=== PATIENT | female | born 2005 | race African-American/Black ===

== ENCOUNTER 2025-04-12 06:45 | Day surgery (SDC) | payer OTHER, SELFPAY ==
--- NOTE | 2025-04-12 | PATH_ITS ---
[facility] Accession Number: [id number] No. of containers..03 Tissue . 01 Material submitted: . PART A: duodenum - DUODENUM PART B: duodenum bulb - DUODENUM, BULB PART C: gastrointestinal site - ANTRUM . 01 Diagnosis: A. DUODENUM, BIOPSY: Small bowel mucosa with no diagnostic abnormality. Negative for active inflammation, features of sprue, dysplasia, or malignancy. . B. DUODENAL BULB, BIOPSY: Duodenal mucosa with no diagnostic abnormality. Negative for active inflammation, features of sprue, dysplasia, or malignancy. . C. GASTRIC ANTRUM, BIOPSY: Gastric antral mucosa with mild chronic inflammation. Negative for Helicobacter organisms by immunohistochemistry. Negative for intestinal metaplasia. Negative for dysplasia or malignancy. [facility] 04/19/2025 1302 Local . 01 Electronically signed: . Elgin Alas MD, PhD, Pathologist NPI- [id number] . 01 Gross description: . Part A: DUODENUM: Received in formalin is 1 fragment(s) of garcía, soft tissue measuring 0.3 x 0.3 x 0.2 cm submitted entirely in 1 cassette(s) Part B: DUODENUM, BULB: Received in formalin are 2 fragment(s) of garcía, soft tissue measuring 0.3 x 0.3 x 0.2 cm to 0.4 x 0.2 x 0.2 cm submitted entirely in 1 cassette(s) Part C: ANTRUM: Received in formalin are 3 fragment(s) of garcía, soft tissue measuring 0.2 x 0.2 x 0.2 cm to 0.5 x 0.4 x 0.2 cm submitted entirely in 1 cassette(s) /[facility] 04/13/2025 1949 Local . 01 Microscopic: . C. An immunohistochemical stain was performed to evaluate for Helicobacter organisms and is negative. The control stain showed appropriate reactivity. . * This test was developed and the performance characteristics were validated by [employer]. It has not been cleared or approved by the [place]. Food and Drug Administration. . 01 Pathologist provided ICD-10: K29.70 . 01 CPT . 917158, 092965, 351614, J88240 Specimen Comment: A courtesy copy of this report has been sent to [phone] Performed at: [address] [address], [place], [place] [id number] MD Nadeem Ford MD Phone: [phone]
[2025-04-12 07:10] VITALS: BP 117/69; PULSE 106; RESP 16; TEMP 36.6; O2SAT 100
[2025-04-12] MEDS: LACTATED RINGERS 1,000 ML 42 ML IV (07:17)
--- NOTE | 2025-04-12 07:33 | PM.PREOP ---
Pre-operative Note COVID-19 COVID-19 status: Not tested Interval Note History & Physical reviewed/Exam performed by Physician: Yes Changes to H&P: No ASA Class (for procedural sedation): II
[2025-04-12 08:19] VITALS: BP 96/66; PULSE 83; RESP 16; TEMP 36.2; O2SAT 100
--- NOTE | 2025-04-12 08:21 | P.OP.EGD&C_ITS ---
Operative Date/Time/Diagnoses Date of procedure: 04/12/25 Time of procedure: 08:21 Pre-op diagnosis: Rectal bleeding Post-op diagnosis: same Procedure & Clinicians Study performed: EGD and colonoscopy Same procedure(s) as scheduled: Yes Surgeon: Dieudonne Jacobo Procedure Notes Procedure in detail: Surgeon: Dieudonne Jacobo MD Anesthesia: Leonarda Pepper IT OPERATIONS SPECIALIST Procedure in detail: A timeout was performed. A bite blocked was placed and monitors were attached to the patient. The patient was positioned in the left lateral decubitus position. Sedation was administered. Once the patient was sedated the endoscope was inserted through the bite block and passed through the esophagus and stomach and into the duodenum. The duodenal mucosa appeared normal however random biopsies were taken from the duodenal mucosa with cold forceps due to the history of Helicobacter pylori. The scope was withdrawn into the duodenal bulb. Again no abnormalities were seen but random biopsies were taken of the bulb with cold forceps. We then withdrew the scope into the stomach. There was mild antritis and random biopsies were taken of the antrum with cold forceps. The rest of the stomach appeared normal. The endoscope was retroflexed and no hiatal hernia was seen. The endoscope was straightned and withdrawn into the esophagus. No abnormalities were seen within the esophagus. EGD findings: Mild antritis Next we repositioned the patient for a colonoscopy. A digital rectal exam was performed and ridge was palpable in the posterior midline consistent with a posterior midline fissure. On visual inspection there was a sentinel pile in the posterior midline. The colonoscope was inserted and advanced to the cecum. The appendiceal orifice was identified and photographed. The scope was slowly withdrawn over greater than 6 minutes. No polyps or other abnormalities were seen throughout colon and rectum. The scope was retroflexed in the rectum and no gross abnormality was seen. Upon withdrawal through the anal canal there appeared to be a small posterior midline anal fissure. Colonoscopy findings: Normal colon, posterior midline anal fissure Total procedural EBL: 2 mL Scope withdrawal time: 8 minutes Sedation minutes: 29 minutes Post-procedure Disposition: PACU
[2025-04-12 08:23] VITALS: BP 99/63; PULSE 80; RESP 17; O2SAT 100
[2025-04-12 08:29] VITALS: BP 108/71; PULSE 101; RESP 13; O2SAT 100
[2025-04-12 08:34] VITALS: BP 92/65; PULSE 92; RESP 16; O2SAT 97
[2025-04-12 08:41] VITALS: BP 109/69; PULSE 86; RESP 16; TEMP 36.5; O2SAT 100
== END 2025-04-12 08:54 | disposition home or self-care (01) ==
PROVIDERS: Referring Provider Surgery; Visit Provider Surgery
PROC: 0DJ08ZZ Inspection of Upper Intestinal Tract, Via Natural or Artificial Opening Endoscopic (ICD-10-PCS; CPT 43239; principal; 2025-04-12 07:45)
PROC: 0DJD8ZZ Inspection of Lower Intestinal Tract, Via Natural or Artificial Opening Endoscopic (ICD-10-PCS; CPT 45378; 2025-04-12 07:45)
DX: K62.5 Hemorrhage of anus and rectum (principal); R10.13 Epigastric pain; K59.00 Constipation, unspecified; K29.50 Unspecified chronic gastritis without bleeding; K60.2 Anal fissure, unspecified; K64.8 Other hemorrhoids
CPT/HCPCS: 43239; 45378; J2405; J2704

== ENCOUNTER → 2025-07-18 10:56 | Outpatient (CLI) | payer OTHER, SELFPAY ==
--- NOTE | 2025-07-18 10:57 | DI.US.S_ITS ---
PROCEDURE: US ABDOMEN COMPLETE INDICATIONS: Abdominal pain TECHNIQUE: Real-time scanning was performed of the abdominal and retroperitoneal organs, with image documentation. COMPARISON: None. FINDINGS: Liver: Liver is normal in size and homogeneous in echotexture. Gallbladder: No findings of gallstones or sludge are seen. The gallbladder wall is not thickened, measuring 3 mm or less. No specific pericholecystic fluid is seen. The sonographic Lopez sign is negative. Biliary ducts: Intrahepatic bile ducts are non-dilated. Extrahepatic bile duct caliber measures 3 mm. Normal is 6-7 mm or less in diameter, or 10 mm or less post-cholecystectomy. Pancreas: Visualized portions of the pancreas are sonographically normal. Spleen: Spleen is normal in size and homogeneous in echotexture. Kidneys: Kidneys are normal in size and echotexture. Right kidney measures 10.3 cm long; left kidney measures 9.3 cm long. No hydronephrosis or nephrolithiasis. No solid masses. Aorta: Visualized aorta is normal in caliber at less than 3 cm. Iliacs: Proximal common iliac arteries are normal in caliber at less than 2.5 cm. IVC: Intrahepatic inferior vena cava is patent. Miscellaneous: No free abdominal fluid. IMPRESSION: The gallbladder demonstrates a normal sonographic appearance. No biliary dilatation is seen. No significant abnormality is seen. Dictated by: Abilio Arias M.D. on 07/18/2025 at 13:43 Approved by: Abilio Arias M.D. on 07/18/2025 at 13:43
== END ==
LOC: US 10:57
PROVIDERS: Visit Provider Surgery
DX: K62.5 Hemorrhage of anus and rectum (principal); R10.9 Unspecified abdominal pain
CPT/HCPCS: 76700

== ENCOUNTER → 2025-09-15 13:28 | Outpatient (CLI) | payer OTHER, SELFPAY ==
[2025-09-15 13:46] LABS: Appearance Urine UA CLEAR; Bilirubin Urine UA NEGATIVE (NEGATIVE); Color Urine UA YELLOW; Glucose Urine UA NEGATIVE (Negative); Ketones Urine UA NEGATIVE (NEGATIVE); Leukocyte Esterase Urine UA NEGATIVE (NEGATIVE); Nitrite Urine UA NEGATIVE (Negative); Occult Blood Urine UA NEGATIVE (Negative); Protein Urine UA NEGATIVE (Negative); Specific Gravity Urine UA 1.010 (1.000-1.035); Urobilinogen Urine UA 0.2 E.U./dL (0.2)
[2025-09-15 13:47] LABS: pH Urine UA 7.0 (4.5-8.0)
[2025-09-15 13:53] LABS: Culture Indicated Urine Cult Not Indicated
== END ==
PROVIDERS: Referring Provider Surgery; Visit Provider Surgery
DX: R30.0 Dysuria (principal)
CPT/HCPCS: 81001